=== PATIENT | female | born 1950 | race Caucasian/White ===

== ENCOUNTER 2016-09-04 19:17 | Emergency (ER) | payer OTHER ==
--- NOTE | 2016-09-04 19:34 | CPEKG ---
Heart Rate: 57 RR Interval: 1053 P-R Interval: 140 QRSD Interval: 86 QT Interval: 420 QTC Interval: 409 P Mcdonald: 69 QRS Mcdonald: 54 T Wave Mcdonald: 46 EKG Severity - NORMAL ECG - EKG Impression: SINUS RHYTHM Electronically Signed By: Josh Arroyo 04-Sep-2016 23:24:18
--- NOTE | 2016-09-04 19:45 | EDPHY ---
H & P Time Seen by Provider: 09/04/16 19:27 HPI/ROS: Chief complaint. Palpitations HPI. 65-year-old female with palpitations for 2-3 weeks. She feels skipped beats. She however does not have any chest discomfort or shortness of breath. She has been diagnosed with Lyme disease many years ago and took 1 dose or course of antibiotics made her sick and now she is using herbal therapy. She feels that the beets skipped now and again. She was achy in her back last night but not today. Today she was somewhat sweaty on her back. She has no unusual leg pain or swelling. No fever cough ROS Constitutional. no fever/chills, no weakness Eyes. no problems with vision ENT. no sore throat, no nasal drainage Cardiovascular. Palpitations Respiratory. no shortness of breath, no cough Abdominal. no abdominal pain, no nausea/vomiting, no diarrhea . no problems urinating MS. no calf pain/swelling, no neck/back pain, no joint pain Skin. Sweaty on back Lymph. no swollen glands Neuro. no headache, no dizziness, no difficulty walking or with speech Past Medical/Surgical History: Lyme disease, dyslipidemia, hypothyroid Social History: Single, nonsmoker, no alcohol Smoking Status: Former smoker Physical Exam: General Appearance: Alert well-developed female no distress vital signs are stable Eyes: Pupils equal and round no pallor or injection. ENT, Mouth: Mucous membranes are moist. Respiratory: There are no retractions, lungs are clear to auscultation. Cardiovascular: Regular rate and rhythm. Gastrointestinal: Abdomen is soft and nontender, no masses, bowel sounds normal. Neurological: Awake and alert, sensory and motor exams grossly normal. Skin: Warm and dry, no rashes. Musculoskeletal: Neck is supple nontender. Extremities symmetrical, full range of motion. Psychiatric: Patient is oriented X 3, there is no agitation. Constitutional: Initial Vital Signs Temperature (C) 37.1 C 09/04/16 19:43 Heart Rate 59 L 09/04/16 19:43 Respiratory Rate 17 09/04/16 19:43 Blood Pressure 129/77 H 09/04/16 19:43 O2 Sat (%) 98 09/04/16 19:43 O2 Delivery Mode Room Air Allergies/Adverse Reactions: prochlorperazine edisylate [From Compazine] Allergy (Intermediate, Verified 11:15) Other-Enter Comments prochlorperazine maleate [From Compazine] Allergy (Intermediate, Verified 11:15) Other-Enter Comments Home Medications: Medication Instructions Recorded Bioidentical Horomones 09/15/12 Meclizine HCl [Meclizine HCl 25 mg 25 mg PO Q6 PRN #12 tab 09/15/12 (RX,OTC)] Ondansetron Odt [Zofran Odt] 4 mg PO Q4PRN PRN #10 tab 09/15/12 Thyroid [[place] Thyroid 60 MG (RX)] 100 mg PO DAILY10 09/15/12 Medical Decision Making - Diagnostics EKG Interpretation: EKG interpreted by me shows normal sinus rhythm normal interval and axis. QRS is normal there is no significant ST elevation or depression. There is no arrhythmia. The rate is 57 Procedures: IV normal saline, monitor ED Course/Re-evaluation: Re-evaluation 10:05 p.m.. Patient is stable. Patient and I discussed laboratory evaluation as well as EKG evaluation. We discussed treatment plan including criteria for return importance of follow-up and further evaluation. She expresses understanding and agreement. She has only occasional PVCs on the monitor. No coupling sore runs of PVCs Differential Diagnosis: I considered electrolyte abnormalities, hyperthyroid. The patient apparently has partially treated Lyme disease which could certainly affect the heart. I do not see any indication conduction defects however - Data Points Laboratory Results: Laboratory Results 09/04/16 20:42 09/04/16 21:10 09/04/16 09/04/16 09/04/16 21:10 20:42 19:50 WBC 7.41 10^3/uL 10^3/uL (3.80-9.50) RBC 4.36 10^6/uL 10^6/uL (4.18-5.33) Hgb 12.9 g/dL g/dL (12.6-16.3) Hct 38.4 % % (38.0-47.0) MCV 88.1 fL fL (81.5-99.8) MCH 29.6 pg pg (27.9-34.1) MCHC 33.6 g/dL g/dL (32.4-36.7) RDW 13.4 % % (11.5-15.2) Plt Count 239 10^3/uL 10^3/uL (150-400) MPV Neut % (Auto) Lymph % (Auto) [place] % (Auto) Eos % (Auto) Baso % (Auto) Nucleat RBC Rel Count Absolute Neuts (auto) Absolute Lymphs (auto) Absolute Monos (auto) Absolute Eos (auto) Absolute Basos (auto) Absolute Nucleated RBC Immature Gran % Immature Gran # Turbidity TNP Sodium 140 mEq/L mEq/L TNP (134-144) Potassium 4.2 mEq/L mEq/L TNP (3.5-5.2) Chloride 106 mEq/L mEq/L TNP (97-110) Carbon Dioxide 25 mEq/l mEq/l TNP (22-31) Anion Gap 9 mEq/L mEq/L TNP (8-16) BUN 16 mg/dL mg/dL TNP (7-23) Creatinine 0.8 mg/dL mg/dL TNP (0.6-1.0) Estimated GFR > 60 TNP Glucose 96 mg/dL mg/dL TNP (70-100) Calcium 9.5 mg/dL mg/dL TNP (8.5-10.4) Troponin I < 0.012 ng/mL ng/mL TNP (0-0.034) TSH 0.956 uIU/mL uIU/mL TNP (0.465-4.680) Specimen Hemolysis REJ 09/04/16 19:50 WBC REJ RBC TNP Hgb TNP Hct TNP MCV TNP MCH TNP MCHC TNP RDW TNP Plt Count TNP MPV TNP Neut % (Auto) TNP Lymph % (Auto) TNP [place] % (Auto) TNP Eos % (Auto) TNP Baso % (Auto) TNP Nucleat RBC Rel Count TNP Absolute Neuts (auto) TNP Absolute Lymphs (auto) TNP Absolute Monos (auto) TNP Absolute Eos (auto) TNP Absolute Basos (auto) TNP Absolute Nucleated RBC TNP Immature Gran % TNP Immature Gran # TNP Turbidity Sodium Potassium Chloride Carbon Dioxide Anion Gap BUN Creatinine Estimated GFR Glucose Calcium Troponin I TSH Specimen Hemolysis Departure - Departure Disposition: Home, Routine, Self-Care Clinical Impression: Palpitations Condition: Good Instructions: Palpitations (ED) Additional Instructions: Activity as tolerated. Return for worsening symptoms. I will give you the name of analytics director for follow-up especially because you have Lyme disease which can cause heart involvement Referrals: MILAGRO ALY [Primary Care Provider] - As per Instructions Thor Crenshaw MD [Medical Doctor] - 2-3 days, call for appt.
[2016-09-04 19:46] VITALS: PULSE 59; O2SAT 98
[2016-09-04 20:46] LABS: HEMATOCRIT 38.4 % (38.0-47.0); HEMOGLOBIN 12.9 g/dL (12.6-16.3); MEAN CELL HEMOGLOBIN 29.6 pg (27.9-34.1); MEAN CELL HEMOGLOBIN CONCENTR. 33.6 g/dL (32.4-36.7); MEAN CELL VOLUME 88.1 fL (81.5-99.8); RED BLOOD CELL COUNT 4.36 10^6/uL (4.18-5.33); RED CELL DISTRIBUTION WIDTH 13.4 % (11.5-15.2)
[2016-09-04 21:29] LABS: ANION GAP 9 mEq/L (8-16); CALCIUM 9.5 mg/dL (8.5-10.4); CARBON DIOXIDE 25 mEq/l (22-31); CHLORIDE 106 mEq/L (97-110); CREATININE 0.8 mg/dL (0.6-1.0); GLOMERULAR FILTRATION RATE > 60; GLUCOSE 96 mg/dL (70-100); POTASSIUM 4.2 mEq/L (3.5-5.2); SODIUM 140 mEq/L (134-144)
[2016-09-04 21:42] LABS: TROPONIN I < 0.012 ng/mL (0-0.034)
[2016-09-04 22:27] VITALS: BP 109/72; RESP 20; TEMP 98.2
== END 2016-09-04 22:27 | disposition home or self-care (01) ==
DX: R00.2 Palpitations (principal); Z87.891 Personal history of nicotine dependence

== ENCOUNTER → 2016-11-11 | Outpatient (CLI) | payer OTHER | LOC: FIMAGING 07:37 | PROVIDERS: ATTEND Family Medicine | DX: Z12.31 Encounter for screening mammogram for malignant neoplasm of breast (principal); Z80.3 Family history of malignant neoplasm of breast | CPT/HCPCS: G0202 ==

== ENCOUNTER 2016-11-29 00:34 | Emergency (ER) | payer OTHER ==
[2016-11-29 00:39] VITALS: TEMP 98.1
--- NOTE | 2016-11-29 00:41 | EDPHY ---
H & P Stated Complaint: PAIN ALL OVER FROM HER LYMES DX, NOT ABLE TO SLEEP HPI/ROS: HPI CHIEF COMPLAINT: I am unable sleep, Lyme disease, pain all over HISTORY OF PRESENT ILLNESS: This patient is of 65-year-old female she presents emergency room by private vehicle with her son she tells me she suffers from Lyme disease for the past 10 years followed by specialist in [place], she presents emergency room stating that her body is on fire and that she has pain throughout her entire body burning in nature involving her nerves. She feels that her Lyme disease is acting up. She is unable to sleep. She states she feels anxious, have racing thoughts. She denies suicidal ideation. She is requesting pain medicine here in emergency room and medication make her sleepy. She does tell me that she saw her primary care doctor for this and was given tramadol and oxycodone. She did take an oxycodone this evening and did get some relief. She denies any recent illness specifically denies cough, fever, vomiting, chest pain, shortness of breath, urinary symptoms. She does tell me that she takes herbs to control her Lyme disease. Also tells me that she used to be on Neurontin however this made her too sleepy. Past Medical History: Lyme disease, thyroid disease Past Surgical History: No recent surgical history Social History: Denies daily use drugs alcohol tobacco products, lives locally , son at bedside Family History: Noncontributory ROS REVIEW OF SYSTEMS: A comprehensive 10 point review of systems is otherwise negative aside from elements mentioned in the history of present illness. Exam Constitutional appears well nontoxic, triage nursing summary reviewed, vital signs reviewed, awake/alert. Eyes normal conjunctivae and sclera, EOMI, PERRLA. HENT normal inspection, atraumatic, moist mucus membranes, no epistaxis, neck supple/ no meningismus, no raccoon eyes. Respiratory clear to auscultation bilaterally, normal breath sounds, no respiratory distress, no wheezing. Cardiovascular rate normal, regular rhythm, no murmur, no edema, distal pulses normal. Gastrointestinal soft, non-tender, no rebound, no guarding, normal bowel sounds, no distension, no pulsatile mass. Genitourinary no CVA tenderness. Musculoskeletal no midline vertebral tenderness, full range of motion, no calf swelling, no tenderness of extremities, no meningismus, good pulses, neurovascularly intact. Skin pink, warm, & dry, no rash, skin atraumatic. Neurologic awake, alert and oriented x 3, AAOx3, moves all 4 extremities equally, motor intact, sensory intact, CN II-XII intact, normal cerebellar, normal vision, normal speech. Psychiatric normal mood/affect. Heme/Lymph/Immune no lymphadenopathy. 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 Check basic blood work. Re-evaluate. Re-evaluation: 0230AM: Re-evaluation at this time patient is resting comfortably. She feels much better. She tells me anxiety and pain is well controlled. She is requesting Ativan for home. I will give her limited supply. I did go over her TSH with her. She understands follow-up with primary care doctor get her thyroid evaluated. She understands return emergency room if she has any worsening symptoms questions or concerns. Source: Patient - Personal History Current Tetanus/Diphtheria Vaccine: Yes Current Tetanus Diphtheria and Acellular Pertussis (TDAP): Yes - Medical/Surgical History Hx Asthma: No Hx Chronic Respiratory Disease: No Hx Diabetes: No Hx Cardiac Disease: No Hx Renal Disease: No Hx Cirrhosis: No Hx Alcoholism: No Hx HIV/AIDS: No Hx Splenectomy or Spleen Trauma: No Other PMH: Lyme dse. hypothyroidism. Medical Ulcer. surgery endoscopy - Social History Smoking Status: Former smoker Constitutional: Initial Vital Signs Temperature (C) 36.7 C 11/29/16 00:37 Heart Rate 68 11/29/16 00:37 Respiratory Rate 18 11/29/16 00:37 Blood Pressure 116/76 11/29/16 00:37 O2 Sat (%) 97 11/29/16 00:37 O2 Delivery Mode Room Air Allergies/Adverse Reactions: prochlorperazine edisylate [From Compazine] Allergy (Intermediate, Verified 00:39) Other-Enter Comments prochlorperazine maleate [From Compazine] Allergy (Intermediate, Verified 00:39) Other-Enter Comments Home Medications: Medication Instructions Recorded Bioidentical Horomones 09/15/12 Thyroid [[place] Thyroid 60 MG (RX)] 100 mg PO DAILY10 09/15/12 LORazepam [Ativan] 1 mg PO BID #10 tablet 11/29/16 Sulfamethox/Tmp 800/160 mg 1 tab PO 11/29/16 [Bactrim Ds] Medical Decision Making - Data Points Laboratory Results: Laboratory Results 11/29/16 01:15 11/29/16 01:15 11/29/16 11/29/16 01:15 01:15 WBC 5.07 10^3/uL 10^3/uL (3.80-9.50) RBC 4.58 10^6/uL 10^6/uL (4.18-5.33) Hgb 13.4 g/dL g/dL (12.6-16.3) Hct 40.4 % % (38.0-47.0) MCV 88.2 fL fL (81.5-99.8) MCH 29.3 pg pg (27.9-34.1) MCHC 33.2 g/dL g/dL (32.4-36.7) RDW 13.9 % % (11.5-15.2) Plt Count 212 10^3/uL 10^3/uL (150-400) MPV 10.5 fL fL (8.7-11.7) Neut % (Auto) 41.6 % % (39.3-74.2) Lymph % (Auto) 46.7 % H % (15.0-45.0) [place] % (Auto) 8.9 % % (4.5-13.0) Eos % (Auto) 1.6 % % (0.6-7.6) Baso % (Auto) 0.8 % % (0.3-1.7) Nucleat RBC Rel Count 0.0 % % (0.0-0.2) Absolute Neuts (auto) 2.11 10^3/uL 10^3/uL (1.70-6.50) Absolute Lymphs (auto) 2.37 10^3/uL 10^3/uL (1.00-3.00) Absolute Monos (auto) 0.45 10^3/uL 10^3/uL (0.30-0.80) Absolute Eos (auto) 0.08 10^3/uL 10^3/uL (0.03-0.40) Absolute Basos (auto) 0.04 10^3/uL 10^3/uL (0.02-0.10) Absolute Nucleated RBC 0.00 10^3/uL 10^3/uL (0-0.01) Immature Gran % 0.4 % % (0.0-1.1) Immature Gran # 0.02 10^3/uL 10^3/uL (0.00-0.10) Sodium 138 mEq/L mEq/L (134-144) Potassium 4.1 mEq/L mEq/L (3.5-5.2) Chloride 106 mEq/L mEq/L (97-110) Carbon Dioxide 24 mEq/l mEq/l (22-31) Anion Gap 8 mEq/L mEq/L (8-16) BUN 11 mg/dL mg/dL (7-23) Creatinine 1.1 mg/dL H mg/dL (0.6-1.0) Estimated GFR 50 Glucose 100 mg/dL mg/dL (70-100) Calcium 10.1 mg/dL mg/dL (8.5-10.4) TSH 7.710 uIU/mL H uIU/mL (0.465-4.680) Medications Given: Discontinued Medications Hydromorphone HCl (Dilaudid) 0.5 mg IVP EDNOW ONE Stop: 11/29/16 00:57 Last Admin: 11/29/16 01:18 Dose: 0.5 mg Sodium Chloride (Ns) 1,000 mls @ 0 mls/hr IV ONCE ONE PRN Reason: Wide Open Stop: 11/29/16 00:57 Last Admin: 11/29/16 01:17 Dose: 1,000 mls Lorazepam (Ativan Injection) 1 mg IVP EDNOW ONE Stop: 11/29/16 00:57 Last Admin: 11/29/16 01:18 Dose: 1 mg Departure - Departure Disposition: Home, Routine, Self-Care Clinical Impression: Lyme disease, Thyroid disease Condition: Good Instructions: Lyme Disease (ED) Additional Instructions: 1. Stay well-hydrated. 2. I do recommend that he follow up with her primary care doctor. 3. Please follow up with her primary care doctor about her thyroid. Referrals: MILAGRO ALY [Primary Care Provider] - As per Instructions Prescriptions: LORazepam [Ativan] 1 mg PO BID #10 tablet
[2016-11-29] MEDS ORDERED: NS 1,000 ML IV ONE (00:56)
[2016-11-29] MEDS ORDERED: LORazepam 2 MG/ML INJ IVP ONE (00:56)
[2016-11-29] MEDS ORDERED: HYDROmorphONE/DILAUDID 1 MG/ML SYR IVP ONE (00:56)
[2016-11-29 01:34] LABS: % IMMATURE GRANULYOCYTES 0.4 % (0.0-1.1); ABSOLUTE IMMATURE GRANULOCYTES 0.02 10^3/uL (0.00-0.10); ADD DIFF? NO; ADD MORPH? NO; ADD SCAN? NO; ATYPICAL LYMPHOCYTE FLAG 0 (0-99); FRAGMENT RBC FLAG 0 (0-99); HEMATOCRIT 40.4 % (38.0-47.0); HEMOGLOBIN 13.4 g/dL (12.6-16.3); LEFT SHIFT FLG 0 (0-99); LIPEMIA HEMOLYSIS FLAG 80 (0-99); MEAN CELL HEMOGLOBIN 29.3 pg (27.9-34.1); MEAN CELL HEMOGLOBIN CONCENTR. 33.2 g/dL (32.4-36.7); MEAN CELL VOLUME 88.2 fL (81.5-99.8); MEAN PLATELET VOLUME 10.5 fL (8.7-11.7); PLATELET CLUMPS FLAG 0 (0-99); PLATELET COUNT 212 10^3/uL (150-400); RED BLOOD CELL COUNT 4.58 10^6/uL (4.18-5.33); RED CELL DISTRIBUTION WIDTH 13.9 % (11.5-15.2)
[2016-11-29 01:54] LABS: ANION GAP 8 mEq/L (8-16); CALCIUM 10.1 mg/dL (8.5-10.4); CARBON DIOXIDE 24 mEq/l (22-31); CHLORIDE 106 mEq/L (97-110); CREATININE 1.1 mg/dL (0.6-1.0); GLOMERULAR FILTRATION RATE 50; GLUCOSE 100 mg/dL (70-100); POTASSIUM 4.1 mEq/L (3.5-5.2); SODIUM 138 mEq/L (134-144)
[2016-11-29 02:36] VITALS: BP 103/68; PULSE 46; RESP 16; O2SAT 93
== END 2016-11-29 02:46 | disposition home or self-care (01) ==
DX: A69.20 Lyme disease, unspecified (principal); E07.9 Disorder of thyroid, unspecified; Z87.891 Personal history of nicotine dependence
CPT/HCPCS: 96374; J1170; J2060

== ENCOUNTER 2017-03-16 12:38 | Emergency (ER) | payer OTHER ==
[2017-03-16 12:43] VITALS: TEMP 97.7
--- NOTE | 2017-03-16 13:18 | EDPHY ---
H & P Time Seen by Provider: 03/16/17 13:02 HPI/ROS: CHIEF COMPLAINT: "I feel like I took a Xanax" HISTORY OF PRESENT ILLNESS: Patient is a 66-year-old female with a history of Lyme disease who presents to the emergency department feeling as though she was "drugged" next dose of Xanax. At baseline she takes minocycline, Synthroid, and antifungal, and Xanax. She has been taking her medications regularly. She is not take any additional doses. Yesterday she woke from sleep and felt as though she was on Xanax. She felt mellow and tired. She had mild nausea and dizziness. She states this feels exactly like when she takes her Xanax. She has no pain. No cough or shortness of breath. No chest pain. No abdominal pain. No diarrhea or vomiting. No fevers or chills. REVIEW OF SYSTEMS: My complete review of systems is negative except as mentioned in the HPI. Past Medical/Surgical History: Includes Lyme disease, hypothyroidism, peptic ulcer disease Past surgical history: Includes bilateral tubal ligation, endoscopy Social history: The patient does not smoke. The patient states that she sees a insurance investigator, Dr. Hawkins Smoking Status: Former smoker Physical Exam: Vitals noted. 36.5, 127/70, fever, 18, 99% on room air GENERAL: Well-appearing, in no acute distress, alert. HEENT: Eyes normal to inspection, normal pharynx, no signs of dehydration. NECK: No thyromegaly, no lymphadenopathy, supple. RESPIRATORY: Clear to auscultation bilaterally, no rales, rhonchi or wheezing. CVS: Regular rate and rhythm, no rubs, murmurs, or gallops. ABDOMEN: Soft, nontender, nondistended, no organomegaly. BACK: Normal to inspection, no CVA tenderness. SKIN: Normal color, no rash, warm, dry. No pallor. EXTREMITIES: No pedal edema, no calf tenderness, no Homans sign or cords, no joint swelling. NEURO/PSYCH: Alert and oriented x3, normal mood and affect, normal motor sensory exam. No obvious cranial nerve deficit. Constitutional: Initial Vital Signs Temperature (C) 36.5 C 03/16/17 12:41 Heart Rate 54 L 03/16/17 12:41 Respiratory Rate 18 03/16/17 12:41 Blood Pressure 127/78 H 03/16/17 12:41 O2 Sat (%) 99 03/16/17 12:41 O2 Delivery Mode Room Air Allergies/Adverse Reactions: prochlorperazine edisylate [From Compazine] Allergy (Intermediate, Verified 09/27 12:40) Other-Enter Comments prochlorperazine maleate [From Compazine] Allergy (Intermediate, Verified 12:40) Other-Enter Comments Home Medications: Medication Instructions Recorded Minocycline HCl ER 03/16/17 Synthroid 03/16/17 Xanax 03/16/17 Medical Decision Making - Diagnostics EKG Interpretation: EKG shows sinus bradycardia at 47, normal axis, normal intervals]. There are no ST or T-wave abnormalities. EKG shows sinus bradycardia. ED Course/Re-evaluation: In the emergency department I discussed possible etiologies with the patient. I answered all her questions. She consented to laboratory studies. An IV was placed. Labs were ordered. The CBC and chemistry unremarkable. TSH normal. Troponin negative UA negative. I discussed the results with the patient. I answered all her questions. She will follow up with the primary care physician. She is given warnings prior to leaving. Differential Diagnosis: My differential includes but is not limited to hypothyroidism, hyperthyroidism, electrolyte abnormality, sugar abnormality, dehydration, drug reaction, urinary tract infection, bacteremia, sepsis - Data Points Laboratory Results: Laboratory Results 03/16/17 13:50 03/16/17 13:50 03/16/17 03/16/17 03/16/17 15:00 13:50 13:50 WBC 7.13 10^3/uL 10^3/uL (3.80-9.50) RBC 4.80 10^6/uL 10^6/uL (4.18-5.33) Hgb 14.0 g/dL g/dL (12.6-16.3) Hct 43.0 % % (38.0-47.0) MCV 89.6 fL fL (81.5-99.8) MCH 29.2 pg pg (27.9-34.1) MCHC 32.6 g/dL g/dL (32.4-36.7) RDW 13.6 % % (11.5-15.2) Plt Count 261 10^3/uL 10^3/uL (150-400) MPV 10.2 fL fL (8.7-11.7) Neut % (Auto) 59.3 % % (39.3-74.2) Lymph % (Auto) 29.7 % % (15.0-45.0) [place] % (Auto) 8.1 % % (4.5-13.0) Eos % (Auto) 1.5 % % (0.6-7.6) Baso % (Auto) 1.1 % % (0.3-1.7) Nucleat RBC Rel Count 0.0 % % (0.0-0.2) Absolute Neuts (auto) 4.22 10^3/uL 10^3/uL (1.70-6.50) Absolute Lymphs (auto) 2.12 10^3/uL 10^3/uL (1.00-3.00) Absolute Monos (auto) 0.58 10^3/uL 10^3/uL (0.30-0.80) Absolute Eos (auto) 0.11 10^3/uL 10^3/uL (0.03-0.40) Absolute Basos (auto) 0.08 10^3/uL 10^3/uL (0.02-0.10) Absolute Nucleated RBC 0.00 10^3/uL 10^3/uL (0-0.01) Immature Gran % 0.3 % % (0.0-1.1) Immature Gran # 0.02 10^3/uL 10^3/uL (0.00-0.10) Sodium 141 mEq/L mEq/L (134-144) Potassium 4.3 mEq/L mEq/L (3.5-5.2) Chloride 105 mEq/L mEq/L (97-110) Carbon Dioxide 25 mEq/l mEq/l (22-31) Anion Gap 11 mEq/L mEq/L (8-16) BUN 15 mg/dL mg/dL (7-23) Creatinine 0.8 mg/dL mg/dL (0.6-1.0) Estimated GFR > 60 Glucose 90 mg/dL mg/dL (70-100) Calcium 9.9 mg/dL mg/dL (8.5-10.4) Total Bilirubin 0.3 mg/dL mg/dL (0.1-1.4) Conjugated Bilirubin 0.2 mg/dL mg/dL (0.0-0.5) Unconjugated Bilirubin 0.1 mg/dL mg/dL (0.0-1.1) AST 20 IU/L IU/L (14-46) ALT 28 IU/L IU/L (9-52) Alkaline Phosphatase 55 IU/L IU/L (38-126) Troponin I < 0.012 ng/mL ng/mL (0.000-0.034) Total Protein 7.0 g/dL g/dL (6.3-8.2) Albumin 4.2 g/dL g/dL (3.5-5.0) TSH 1.200 uIU/mL uIU/mL (0.465-4.680) Urine Color PALE YELLOW Urine Appearance CLEAR Urine pH 7.0 (5.0-7.5) Ur Specific [place] 1.004 (1.002-1.030) Urine Protein NEGATIVE (NEGATIVE) Urine Ketones NEGATIVE (NEGATIVE) Urine Blood NEGATIVE (NEGATIVE) Urine Nitrate NEGATIVE (NEGATIVE) Urine Bilirubin NEGATIVE (NEGATIVE) Urine Urobilinogen NEGATIVE EU EU (0.2-1.0) Ur Leukocyte Esterase NEGATIVE (NEGATIVE) Urine Glucose NEGATIVE (NEGATIVE) Medications Given: Discontinued Medications Sodium Chloride (Ns) 500 mls @ 0 mls/hr IV EDNOW ONE; Wide Open PRN Reason: Protocol Stop: 03/16/17 13:21 Last Admin: 03/16/17 13:55 Dose: 500 mls Departure - Departure Disposition: Home, Routine, Self-Care Clinical Impression: Dizziness Fatigue Qualifiers: Fatigue type: unspecified Qualified Code(s): R53.83 - Other fatigue Condition: Good Instructions: Dizziness (ED) Additional Instructions: Your laboratory studies and urine were normal. You need close follow-up with your primary care physician. Return with worsening symptoms. Referrals: MILAGRO ALY [Primary Care Provider] - 2-3 days without fail
[2017-03-16] MEDS ORDERED: NS 500 ML IV ONE (13:20)
[2017-03-16 14:01] LABS: % IMMATURE GRANULYOCYTES 0.3 % (0.0-1.1); ABSOLUTE IMMATURE GRANULOCYTES 0.02 10^3/uL (0.00-0.10); ADD DIFF? NO; ADD MORPH? NO; ADD SCAN? NO; ATYPICAL LYMPHOCYTE FLAG 0 (0-99); FRAGMENT RBC FLAG 0 (0-99); LEFT SHIFT FLG 0 (0-99); LIPEMIA HEMOLYSIS FLAG 80 (0-99); MEAN CELL HEMOGLOBIN 29.2 pg (27.9-34.1); MEAN CELL HEMOGLOBIN CONCENTR. 32.6 g/dL (32.4-36.7); MEAN CELL VOLUME 89.6 fL (81.5-99.8); MEAN PLATELET VOLUME 10.2 fL (8.7-11.7); PLATELET CLUMPS FLAG 0 (0-99); PLATELET COUNT 261 10^3/uL (150-400); RED CELL DISTRIBUTION WIDTH 13.6 % (11.5-15.2)
--- NOTE | 2017-03-16 14:08 | CPEKG ---
Heart Rate: 47 RR Interval: 1277 P-R Interval: 148 QRSD Interval: 84 QT Interval: 440 QTC Interval: 389 P [place]: 68 QRS [place]: 55 T Wave [place]: 47 EKG Severity - OTHERWISE NORMAL ECG - EKG Impression: SINUS BRADYCARDIA Electronically Signed By: Jose Rafael Santana 17-Mar-2017 08:13:07
[2017-03-16 14:10] LABS: ALANINE AMINOTRANSFERASE 28 IU/L (9-52); ALBUMIN 4.2 g/dL (3.5-5.0); ALKALINE PHOSPHATASE 55 IU/L (38-126); ANION GAP 11 mEq/L (8-16); ASPARTATE AMINOTRANSFERASE 20 IU/L (14-46); BILIRUBIN,TOTAL 0.3 mg/dL (0.1-1.4); BILIRUBIN-CONJUGATED 0.2 mg/dL (0.0-0.5); BILIRUBIN-UNCONJUGATED 0.1 mg/dL (0.0-1.1); CALCIUM 9.9 mg/dL (8.5-10.4); CARBON DIOXIDE 25 mEq/l (22-31); CHLORIDE 105 mEq/L (97-110); CREATININE 0.8 mg/dL (0.6-1.0); GLOMERULAR FILTRATION RATE > 60; GLUCOSE 90 mg/dL (70-100); POTASSIUM 4.3 mEq/L (3.5-5.2); SODIUM 141 mEq/L (134-144)
[2017-03-16 14:21] LABS: TROPONIN I < 0.012 ng/mL (0.000-0.034)
[2017-03-16 15:18] LABS: COLOR PALE YELLOW; LEUKOCYTE ESTERASE,URINE NEGATIVE (NEGATIVE); NITRITE,URINE NEGATIVE (NEGATIVE)
[2017-03-16 15:48] VITALS: BP 122/74; PULSE 55; RESP 16; O2SAT 97
== END 2017-03-16 15:46 | disposition home or self-care (01) ==
DX: R42 Dizziness and giddiness (principal); R53.83 Other fatigue; E86.9 Volume depletion, unspecified; Z87.891 Personal history of nicotine dependence

== ENCOUNTER → 2017-10-24 | Outpatient (CLI) | payer OTHER | LOC: BHFA 09:15 | PROVIDERS: ATTEND Internal Medicine Cardiovascular Disease | DX: I34.0 Nonrheumatic mitral (valve) insufficiency (principal) ==

== ENCOUNTER → 2017-10-27 | Outpatient (CLI) | payer OTHER | LOC: BHFA 10:30 | PROVIDERS: ATTEND Internal Medicine Cardiovascular Disease | DX: I25.10 Atherosclerotic heart disease of native coronary artery without angina pectoris (principal) ==

== ENCOUNTER → 2017-12-12 | Outpatient (CLI) | payer OTHER | LOC: FIMAGING 13:26 | DX: Z12.31 Encounter for screening mammogram for malignant neoplasm of breast (principal); Z85.3 Personal history of malignant neoplasm of breast ==

== ENCOUNTER → 2018-02-20 | Outpatient (CLI) | payer OTHER | LOC: FIMAGING 06:44 | PROVIDERS: ATTEND Physician Assistant Medical | DX: R25.1 Tremor, unspecified (principal); Z86.19 Personal history of other infectious and parasitic diseases ==